=== PATIENT | female | born 1950 | race Caucasian/White ===

== ENCOUNTER → 2023-10-20 08:02 | Outpatient (REF) | payer BC, SELFPAY | LOC: RAD 08:02 | PROVIDERS: ATTENDING PHYSICIAN Obstetrics & Gynecology; FAMILY PHYSICIAN Internal Medicine Critical Care Medicine | DX: Z78.0 Asymptomatic menopausal state (principal) | CPT/HCPCS: 77080 ==

== ENCOUNTER → 2024-08-17 07:51 | Outpatient (REF) | payer BC, SELFPAY ==
[2024-08-17 09:58] LABS: % Basophils 0.6 % (0-2); % Immature Granulocytes 0.3 % (0-0.5); % Lymphocytes 23.8 % (20.5-51.1); % Monocytes 9.5 % (1.7-9.3); % Neutrophils 65.8 % (42.2-75.2); Absolute Lymphocytes 0.8 10^3/uL (1.2-3.4); Absolute Monocytes 0.3 10^3/uL (0.1-0.6); Absolute Neutrophils 2.2 10^3/uL (1.4-6.5); Hemoglobin 14.8 g/dL (12.0-16.0); Mean Corp Hgb Conc. 32.2 g/dL (33.0-37.0); Mean Corpuscular Hgb 28.9 pg (27.0-31.0); Mean Corpuscular Volume 89.8 fL (81.0-99.0); Nucleated Red Blood Cells % 0 %; Red Blood Cell Count 5.12 10^6/uL (4.20-5.40); Red Cell Dist. Width 13.5 % (11.5-14.5); White Blood Cell Count 3.3 10^3/uL (4.8-10.8)
[2024-08-17 10:08] LABS: Albumin 4.4 g/dl (3.5-5.0); Blood Urea Nitrogen 17 mg/dl (7-17); Calcium 9.5 mg/dl (8.4-10.2); Carbon Dioxide 35 mmol/L (22-30); Chloride 101 mmol/L (98-107); Glucose 86 mg/dl (70-99); HDL Cholesterol 55 mg/dl; Iron 80 ug/dl (37-170); LDL Cholesterol, Calculated 101 mg/dl; Phosphorus 3.6 mg/dl (2.5-4.5); Potassium 4.5 mmol/L (3.5-5.1); Sodium 144 mmol/L (135-145); Total Cholesterol 171 mg/dl (50-199); Triglyceride 75 mg/dl (10-149); Very Low Density Lipoprotein 15 mg/dl (0-30); eGFR > 60.00
[2024-08-17 10:17] LABS: Percent Saturation 24 % (20-50); Total Iron Binding Capacity 321 ug/dl (265-497)
[2024-08-17 10:38] LABS: Platelet Count 144 10^3/uL (130-400)
[2024-08-17 10:42] LABS: Ferritin 86.8 ng/ml (11.1-264.0)
[2024-08-17 10:43] LABS: Erythrocyte Sed Rate 25 mm/hour (0-20)
[2024-08-17 10:56] LABS: Vitamin B12 577 pg/ml (239-931)
== END ==
LOC: REG 07:51
PROVIDERS: ATTENDING PHYSICIAN Internal Medicine Critical Care Medicine
DX: Z13.220 Encounter for screening for lipoid disorders (principal); E61.1 Iron deficiency; D72.819 Decreased white blood cell count, unspecified; E87.3 Alkalosis; D51.0 Vitamin B12 deficiency anemia due to intrinsic factor deficiency; K63.5 Polyp of colon
CPT/HCPCS: 36415; 80061; 80069; 82607; 82728; 83540; 83550; 85025; 85652

== ENCOUNTER → 2024-10-06 07:14 | Outpatient (REF) | payer BC, SELFPAY | LOC: WDC 07:14 | PROVIDERS: ATTENDING PHYSICIAN Obstetrics & Gynecology; FAMILY PHYSICIAN Internal Medicine Critical Care Medicine | DX: Z12.31 Encounter for screening mammogram for malignant neoplasm of breast (principal) | CPT/HCPCS: 77063; 77067 ==

== ENCOUNTER → 2025-08-08 13:40 | Outpatient (REF) | payer BC, OTHER, SELFPAY | LOC: MRI 3T 13:40 | PROVIDERS: ATTENDING PHYSICIAN Orthopaedic Surgery; FAMILY PHYSICIAN Internal Medicine Critical Care Medicine | DX: M54.12 Radiculopathy, cervical region (principal) | CPT/HCPCS: 72141 ==

== ENCOUNTER → 2025-08-18 07:27 | Outpatient (REF) | payer OTHER, SELFPAY ==
[2025-08-18 09:11] LABS: Albumin 4.2 g/dl (3.5-5.0); Blood Urea Nitrogen 26 mg/dl (7-17); Calcium 9.6 mg/dl (8.4-10.2); Carbon Dioxide 33 mmol/L (22-30); Chloride 105 mmol/L (98-107); Glucose 91 mg/dl (70-99); HDL Cholesterol 49 mg/dl; LDL Cholesterol, Calculated 88 mg/dl; Potassium 4.2 mmol/L (3.5-5.1); Sodium 142 mmol/L (135-145); Very Low Density Lipoprotein 13 mg/dl (0-30); eGFR > 60.00
[2025-08-18 10:05] LABS: Hematocrit 41.6 % (37.0-47.0); Hemoglobin 13.8 g/dL (12.0-16.0); Mean Corp Hgb Conc. 33.2 g/dL (33.0-37.0); Mean Corpuscular Volume 86.8 fL (81.0-99.0); Nucleated Red Blood Cells % 0 %; Platelet Count 152 10^3/uL (130-400); Red Cell Dist. Width 13.4 % (11.5-14.5)
== END ==
LOC: REG 07:27
PROVIDERS: ATTENDING PHYSICIAN Internal Medicine Critical Care Medicine
DX: Z13.220 Encounter for screening for lipoid disorders (principal); I10 Essential (primary) hypertension; R71.8 Other abnormality of red blood cells
CPT/HCPCS: 36415; 80061; 80069; 85025; 85652